=== PATIENT | female | born 1995 | race Caucasian/White ===

== ENCOUNTER 2020-09-13 14:43 | Emergency (ER) | payer OTHER ==
[~2020-09-13] VITALS: Ht 152.4 cm; Wt 65.3 kg
== END 2020-09-13 19:34 | disposition home or self-care (01) ==
LOC: ER 14:43
DX: R10.2 Pelvic and perineal pain (principal)

== ENCOUNTER 2021-03-27 03:31 | Outpatient (CLI) | payer OTHER ==
[2021-03-27] MEDS ORDERED: PRENATAL + DHA1 EAC1 (05:05)
[2021-03-27] MEDS ORDERED: VITAMIN C60 MG (05:05)
[2021-03-27] MEDS ORDERED: CLARITIN10 M1 (05:06)
[2021-03-27] MEDS ORDERED: FOLIC ACID20 MG (05:06)
== END 2021-03-27 10:38 | disposition home or self-care (01) ==
LOC: OBS/DEL 03:31
PROVIDERS: ATTEND Obstetrics & Gynecology
DX: O26.893 Other specified pregnancy related conditions, third trimester (principal); K29.70 Gastritis, unspecified, without bleeding; Z20.822 Contact with and (suspected) exposure to COVID-19; Z3A.33 33 weeks gestation of pregnancy

== ENCOUNTER 2021-05-01 12:30 | Inpatient (IN) | payer OTHER ==
[~2021-05-01] VITALS: Ht 152.4 cm; Wt 79.4 kg
[~2021-05-01 12:30] MED LIST: CLARITIN10 M1; FOLIC ACID20 MG; PRENATAL + DHA1 EAC1; VITAMIN C60 MG
== END 2021-05-10 11:11 | disposition home or self-care (01) | DRG 807 ==
LOC: LDR 05-08 00:29 → OB/GYN 05-08 12:30
PROVIDERS: ADMIT Obstetrics & Gynecology; ATTEND Obstetrics & Gynecology
PROC: 10E0XZZ Delivery of Products of Conception, External Approach (ICD-10-PCS; principal; 2021-05-08)
PROC: 4A1HXCZ Monitoring of Products of Conception, Cardiac Rate, External Approach (ICD-10-PCS; 2021-05-08)
DX: O80 Encounter for full-term uncomplicated delivery (principal); Z37.0 Single live birth; Z3A.39 39 weeks gestation of pregnancy; Z20.822 Contact with and (suspected) exposure to COVID-19